=== PATIENT | female | born 1990 | race Caucasian/White ===

== ENCOUNTER → 2018-08-15 12:26 | Outpatient (CLI) | payer OTHER, SELFPAY ==
[2018-08-15 13:08] LABS: Basophils % 0.2 % (0.1-2.0); Eosinophils # 0.1 K/mm3 (0.0-0.4); Hematocrit 32.9 % (37.0-47.0); Hemoglobin 11.2 g/dL (12.2-16.2); Lymphocytes # 1.9 K/mm3 (0.7-4.5); Lymphocytes % 22.3 K/mm3 (10-50); Mean Corpuscular HGB Conc 34.1 g/dL (31.8-35.4); Mean Corpuscular Hemoglobin 27.9 pg (27.0-31.2); Mean Corpuscular Volume 81.9 fl (81-99); Mean Platelet Volume 6.9 fl (7.4-10.4); Monocytes # 0.5 K/mm3 (0.1-1.0); Monocytes % 5.6 % (1.7-9.3); Neutrophils # 5.9 K/mm3 (1.8-7.8); Platelet Count 236 K/mm3 (142-424); Red Blood Count 4.02 M/mm3 (4.20-5.40); White Blood Count 8.3 K/mm3 (4.8-10.8)
[2018-08-15 15:45] LABS: Alanine Aminotransferase 31 U/L (12-78); Albumin Level 3.4 gm/dL (3.4-5.0); Alkaline Phosphatase 69 U/L (46-116); Aspartate Amino Transferase 17 U/L (15-37); Bilirubin,Direct 0.1 mg/dL (0.0-0.2); Bilirubin,Indirect 0.2 mg/dL (0.0-0.9); Bilirubin,Total 0.3 mg/dL (0.2-1.0); Total Protein,Serum 6.6 gm/dL (6.4-8.2)
[2018-08-16 07:17] LABS: HIV Screen 4th Generation wRfx Non Reactive (Non Reactive)
[2018-08-16 14:15] LABS: Hepatitis B Surface Antigen Negative (Negative); Hepatitis C Antibody >11.0 s/co ratio (0.0-0.9)
[2018-08-16 14:16] LABS: Rapid Plasma Reagin Ab Titer Non Reactive (NonRea<1:1); Rubella Antibodies, IgG 2.17 index (Immune >0.99)
== END ==
PROVIDERS: Visit Provider Nurse Practitioner Obstetrics & Gynecology
DX: Z34.90 Encounter for supervision of normal pregnancy, unspecified, unspecified trimester (principal)
CPT/HCPCS: 36415; 80076; 85025; 86592; 86703; 86762; 86850; 87340; 87380; G0432

== ENCOUNTER → 2018-08-22 12:54 | Outpatient (CLI) | payer OTHER, SELFPAY ==
--- NOTE | 2018-08-22 12:57 | US_ITS ---
US OB transvaginal HISTORY: ITS.REASON: US OB Dates ORDERING PHYSICIAN: Jeffery Overton MD PATIENT AGE: 27 years COMPARISON: None FINDINGS: An intrauterine gestational sac is present with a pole with a crown-rump length of 3.42cm correlating to gestational age of 10w4d. heart tones are present with an FHR of 165 bpm's. Yolk sac is noted. The amnion and chorion have not yet fused. Adnexa: Unremarkable. 1 cm left ovarian cyst.. IMPRESSION: Live intrauterine gestation at 10 weeks 4 days days as described above. Estimated due date by Ultrasound is 03/17/2019
== END ==
PROVIDERS: Visit Provider Nurse Practitioner Obstetrics & Gynecology
DX: O26.841 Uterine size-date discrepancy, first trimester (principal)
CPT/HCPCS: 76817

== ENCOUNTER → 2018-09-12 12:21 | Outpatient (CLI) | payer OTHER, SELFPAY ==
[2018-09-15 22:06] LABS: Hepatitis C Genotype 3 (.)
== END ==
PROVIDERS: Visit Provider Nurse Practitioner Obstetrics & Gynecology
DX: B19.20 Unspecified viral hepatitis C without hepatic coma (principal)
CPT/HCPCS: 36415; 87522; 87902

== ENCOUNTER → 2018-11-19 12:32 | Outpatient (CLI) | payer OTHER, SELFPAY ==
[2018-11-21 06:14] LABS: Buprenorphine, Urine Negative ng/mL (Cutoff=10)
== END ==
PROVIDERS: Visit Provider Nurse Practitioner Obstetrics & Gynecology
DX: Z34.90 Encounter for supervision of normal pregnancy, unspecified, unspecified trimester (principal); Z3A.23 23 weeks gestation of pregnancy
CPT/HCPCS: 80307

== ENCOUNTER → 2018-12-10 08:08 | Outpatient (CLI) | payer OTHER, SELFPAY ==
[2018-12-10 09:28] LABS: Glucose,Fasting 79 mg/dL (60-105)
[2018-12-10 10:30] LABS: Glucose 1 Hour 127 mg/dL (74-106)
== END ==
PROVIDERS: Visit Provider Nurse Practitioner Obstetrics & Gynecology
DX: Z34.90 Encounter for supervision of normal pregnancy, unspecified, unspecified trimester (principal)
CPT/HCPCS: 36415; 82951

== ENCOUNTER 2018-12-17 09:01 | Outpatient (CLI) | payer OTHER, SELFPAY ==
[2018-12-17 09:16] VITALS: BP 126/77; PULSE 85; RESP 18; TEMP 36.6; O2SAT 98; BMI 34.3
== END 2018-12-17 09:45 | disposition home or self-care (01) ==
LOC: OBOUT 09:03 → OB 09:04
PROVIDERS: PCP Emergency Medicine; Visit Provider Nurse Practitioner Obstetrics & Gynecology
DX: O26.92 Pregnancy related conditions, unspecified, second trimester (principal); Z3A.27 27 weeks gestation of pregnancy; Z87.59 Personal history of other complications of pregnancy, childbirth and the puerperium
CPT/HCPCS: 96372

== ENCOUNTER 2018-12-18 09:32 | Outpatient (CLI) | payer OTHER, SELFPAY ==
[2018-12-18 09:39] VITALS: BP 113/66; PULSE 83; RESP 18; TEMP 36.6; O2SAT 97; BMI 34.3
--- NOTE | 2018-12-18 10:01 | PC.NURSE ---
Patient has follow up appointments with Dr. Overton at Sunday 12/24 and with [facility] on 01/08 with a high risk OBGYN.
== END 2018-12-18 10:00 | disposition home or self-care (01) ==
LOC: OBOUT 09:33 → OB 09:33
PROVIDERS: PCP Emergency Medicine; Visit Provider Nurse Practitioner Obstetrics & Gynecology
DX: O26.92 Pregnancy related conditions, unspecified, second trimester (principal); Z3A.27 27 weeks gestation of pregnancy; Z87.59 Personal history of other complications of pregnancy, childbirth and the puerperium
CPT/HCPCS: 96372

== ENCOUNTER → 2019-02-14 14:30 | Outpatient (CLI) | payer OTHER, SELFPAY | PROVIDERS: Visit Provider Nurse Practitioner Obstetrics & Gynecology | DX: Z34.90 Encounter for supervision of normal pregnancy, unspecified, unspecified trimester (principal) | CPT/HCPCS: 86403 ==

== ENCOUNTER 2019-03-07 05:14 | Inpatient (IN) | payer OTHER, SELFPAY ==
[2019-03-07] VITALS (10 sets, daily range): BP systolic 107–144; BP diastolic 56–95; PULSE 73–108; RESP 14–21; TEMP 37–37.3; O2SAT 96–99; BMI 31.4
[2019-03-07 04:16] LABS: Appearance,Urine CLEAR (Clear); Bilirubin,Urine Negative (Negative); Blood, Urine TRACE-I (Negative); Color,Urine YELLOW (Yellow); Glucose,Urine (UA) Negative (Negative); Ketones,Urine Negative (Negative); Leukocyte Esterase,Urine Negative (Negative); Microscopic, Urine URINE MICROSCOPIC (MICROSCOPIC); Nitrate,Urine Negative (Negative); Protein,Urine Negative (Negative); Specific Gravity, Urine 1.015 (1.005-1.030); Urobilinogen,Urine 0.2 EU/dl (0.2)
[2019-03-07 04:17] LABS: Fetal Membrane Rupture (Rapid) Positive (Negative)
[2019-03-07 04:25] LABS: Amphetamine/Metha Screen,Urine Negative ng/mL (<1000); Barbiturates Screen,Urine Negative ng/mL (<200); Benzodiazepines Screen,Urine Negative ng/mL (<200); Cannabinoid Screen,Urine Negative ng/mL (<50); Cocaine Screen,Urine Negative ng/mL (<300); Methadone Screen,Urine Positive ng/mL (<300); Opiate Screen,Urine Negative ng/mL (<300); Phencyclidine Screen,Urine Negative ng/mL (<25)
[2019-03-07 05:01] LABS: Basophils % 0.2 % (0.1-2.0); Eosinophils # 0.1 K/mm3 (0.0-0.4); Eosinophils % 1.1 % (0.1-12.0); Hemoglobin 13.2 g/dL (12.2-16.2); Lymphocytes # 1.9 K/mm3 (0.7-4.5); Lymphocytes % 20.7 % (10-50); Mean Corpuscular HGB Conc 35.6 g/dL (31.8-35.4); Mean Corpuscular Hemoglobin 30.6 pg (27.0-31.2); Mean Platelet Volume 7.2 fl (7.4-10.4); Monocytes # 0.5 K/mm3 (0.1-1.0); Monocytes % 5.1 % (1.7-9.3); Neutrophils # 6.8 K/mm3 (1.8-7.8); Platelet Count 275 K/mm3 (142-424); Red Cell Distribution Width 13.3 % (11.5-17.5); White Blood Count 9.4 K/mm3 (4.8-10.8)
[2019-03-07 05:12] LABS: Bacteria,Urine 1+ /lpf; Mucus,Urine 1+ /lpf
--- NOTE | 2019-03-07 06:37 | P.PN_ITS ---
[facility] Anesthesia Checklist - Patient Identification Patient Identification: Arm Band - Structural Data Admitted From: Inpatient Planned Operative Procedure/s: labor epidural Consent for Planned Operative Procedure(s) Verified: Yes Verified Documents: Surgical Consent, History and Physical - NPO Status Verified Time NPO: 00:00 - Additional verifications Anesthesia Reactions: No - Airway Assessment C-Spine Mobility Assessed: Yes TMJ Mobility Assessed: Yes Dentition: Good Dentition - Neurological Assessment Level of Consciousness: Awake, Alert - Anesthesia Plan Anesthesia Risk discussed: Yes Anesthesia Plan: Verified ASA Class: II Anesthesia Type: Epidural [facility] History I have reviewed the patient's past medical history: Yes Medical History: Reports:: Cardiomyopathy, Gastroesophageal Reflux Disease(GERD), Migraine *Have you ever received a pneumonia vaccine?: No *Have you received a flu vaccine this season?: No Other Medical History: Reports: Other Other Surgeries: Yes: No Previous Surgery. 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
--- NOTE | 2019-03-07 09:19 | HMH.PHAINT ---
MEDICATION RECONCILIATION COMPLETED ON PATIENT. CALLED [facility] TO VERIFY METHADONE DOSE WITH DOSING NURSE JANUARY. PATIENT TAKES 20MG OF METHADONE DAILY. -DEBBIE MOORED
--- NOTE | 2019-03-07 09:26 | HMH.LABNOT ---
Labor Note - Subjective: Date: 03/07/19 Time: 09:26 regular contraction - Objective: NST:: Reactive Contractions:: every 2-3 minutes Cervical Dilation:: 3 Effacement:: 75% Station: -3 Membranes: spontaneously ruptured - Fetus: Monitoring?: Yes monitoring type:: External - Assessment: Labor progressing?: Yes Cephalopelvic disproportion?: No Patient Problems: All Active Problems (Updated 03/04/19 @ 14:54 by Jeffery Overton MD) History of stillbirth in currently patient (Acute) (Acute) - Plan: Anesthesia for epidural?: Yes Continue to labor down?: Yes Plan for ?: No Continue to monitor?: Yes Start pushing?: No Comment:: She came in this morning with spontaneous rupture of membranes about 2:30 AM. There is some thin meconium. Nonstress test is reactive. Cervix is 3 cm 75% Station -3. She is receiving IV oxytocin. We are picking up the contractions well.
--- NOTE | 2019-03-07 10:54 | HMH.ACPN2 ---
Internal Medicine - PN: Subj *Date: 03/07/19 *Time: 10:54 Interval history: She continues to have early decelerations with an occasional late component. She is complaining of severe right arm pain from her elbow to her wrist. Is not clear why she has this pain and apparently they did blow an IV this morning. The pain has just gotten worse. She continues to have regular contractions but is really not changed her cervix. Her cervix is 3 to 4 cm 75% and station is quite high. We will go ahead with a primary lower segment section. We discussed the risks of surgery that includes bleeding, infection, injury to the bowel and bladder. We discussed the rare risk of DVT. All questions were answered and consents were signed. Exam Vital signs and Labs for Last 24 Hours: Temp Pulse Resp BP Pulse Ox 98.7 F 108 H 18 141/95 H 98 03/07/19 03:44 03/07/19 03:44 03/07/19 03:44 03/07/19 03:44 03/07/19 03:44 Laboratory Results - last 24 hr 03/07/19 03:20: Urine Color Yellow, Urine Appearance Clear, Urine pH 7.0, Ur Specific [place] 1.015, Urine Protein Negative, Urine Glucose (UA) Negative, Urine Ketones Negative, Urine Blood Trace-i, Urine Nitrate Negative, Urine Bilirubin Negative, Urine Urobilinogen 0.2, Ur Leukocyte Esterase Negative, Urine RBC 3-5, Urine WBC 3-5, Ur Squamous Epith Cells 3-5, Urine Bacteria 1+, Urine Mucus 1+ 03/07/19 03:20: Membrane Rupture Positive A 03/07/19 03:20: Urine Opiates Screen Negative, Urine Methadone Screen Positive H, Ur Barbituates Screen Negative, Ur Phencyclidine Scrn Negative, Ur Amphetamines Screen Negative, U Benzodiazepines Scrn Negative, Urine Cocaine Screen Negative, U Marijuana (THC) Screen Negative 03/07/19 04:20: WBC 9.4, RBC 4.30, Hgb 13.2, Hct 37.0, MCV 86.0, MCH 30.6, MCHC 35.6 H, RDW 13.3, Plt Count 275, MPV 7.2 L, Neut % (Auto) 73.0, Lymph % (Auto) 20.7, [place] % (Auto) 5.1, Eos % (Auto) 1.1, Baso % (Auto) 0.2, Neut # (Auto) 6.8, Lymph # (Auto) 1.9, [place] # (Auto) 0.5, Eos # (Auto) 0.1, Baso # (Auto) 0.0 03/07/19 04:20: Blood Type A Positive, Antibody Screen Negative I & O for Last 24 hours: Intake & Output 03/04/19 03/05/19 03/06/19 03/07/19 11:59 11:59 11:59 11:59 Weight 195 lb - Constitutional no acute distress Assessment and Plan (1) Abnormal heart rate or rhythm affecting management of mother Current visit: Yes Status: Acute Category: Medical Code(s): O36.8390 - Maternal care for abnormalities of the heart rate or rhythm, unspecified trimester, not applicable or unspecified (2) Hepatitis C antibody positive in blood Current visit: Yes Status: Acute Category: Medical Code(s): R76.8 - Other specified abnormal immunological findings in serum (3) History of stillbirth in currently patient Current visit: No Status: Acute Qualifiers: Category: Medical Code(s): O09.299 - Supervision of with other poor reproductive or obstetric history, unspecified trimester (4) Meconium in amniotic fluid affecting management of mother Current visit: Yes Status: Acute Category: Medical Code(s): O36.8990 - Maternal care for other specified problems, unspecified trimester, not applicable or unspecified - Assessment and plan all Dx Assessment and Plan for all problems:: We will go ahead with a primary lower segment transverse section. The cervix is really not changed and she is having an abnormal heart rate rhythm with early's and an occasional late component. I suspect she may have a nuchal cord. There is also meconium.
--- NOTE | 2019-03-07 10:57 | P.PN_ITS ---
Internal Medicine - PN: Subj *Date: 03/07/19 *Time: 10:54 Interval history: She continues to have early decelerations with an occasional late component. She is complaining of severe right arm pain from her elbow to her wrist. Is not clear why she has this pain and apparently they did blow an IV this morning. The pain has just gotten worse. She continues to have regular contractions but is really not changed her cervix. Her cervix is 3 to 4 cm 75% and station is quite high. We will go ahead with a primary lower segment section. We discussed the risks of surgery that includes bleeding, infection, injury to the bowel and bladder. We discussed the rare risk of DVT. All questions were answered and consents were signed. Exam Vital signs and Labs for Last 24 Hours: Temp Pulse Resp BP Pulse Ox 98.7 F 108 H 18 141/95 H 98 03/07/19 03:44 03/07/19 03:44 03/07/19 03:44 03/07/19 03:44 03/07/19 03:44 Laboratory Results - last 24 hr 03/07/19 03:20: Urine Color Yellow, Urine Appearance Clear, Urine pH 7.0, Ur Specific [place] 1.015, Urine Protein Negative, Urine Glucose (UA) Negative, Urine Ketones Negative, Urine Blood Trace-i, Urine Nitrate Negative, Urine Bilirubin Negative, Urine Urobilinogen 0.2, Ur Leukocyte Esterase Negative, Urine RBC 3-5, Urine WBC 3-5, Ur Squamous Epith Cells 3-5, Urine Bacteria 1+, Urine Mucus 1+ 03/07/19 03:20: Membrane Rupture Positive A 03/07/19 03:20: Urine Opiates Screen Negative, Urine Methadone Screen Positive H , Ur Barbituates Screen Negative, Ur Phencyclidine Scrn Negative, Ur Amphe tamines Screen Negative, U Benzodiazepines Scrn Negative, Urine Cocaine Screen Negative, U Marijuana (THC) Screen Negative 03/07/19 04:20: WBC 9.4, RBC 4.30, Hgb 13.2, Hct 37.0, MCV 86.0, MCH 30.6, MCHC 35.6 H, RDW 13.3, Plt Count 275, MPV 7.2 L, Neut % (Auto) 73.0, Lymph % (Auto) 20.7, [place] % (Auto) 5.1, Eos % (Auto) 1.1, Baso % (Auto) 0.2, Neut # (Auto) 6.8, Lymph # (Auto) 1.9, [place] # (Auto) 0.5, Eos # (Auto) 0.1, Baso # (Auto) 0.0 03/07/19 04:20: Blood Type A Positive, Antibody Screen Negative I & O for Last 24 hours: Intake & Output 03/04/19 03/05/19 03/06/19 03/07/19 11:59 11:59 11:59 11:59 Weight 195 lb - Constitutional no acute distress Assessment and Plan (1) Abnormal heart rate or rhythm affecting management of mother Current visit: Yes Status: Acute Category: Medical Code(s): O36.8390 - Maternal care for abnormalities of the heart rate or rhythm, unspecified trimester, not applicable or unspecified (2) Hepatitis C antibody positive in blood Current visit: Yes Status: Acute Category: Medical Code(s): R76.8 - Other specified abnormal immunological findings in serum (3) History of stillbirth in currently patient Current visit: No Status: Acute Qualifiers: Category: Medical Code(s): O09.299 - Supervision of with other poor reproductive or obstetric history, unspecified trimester (4) Meconium in amniotic fluid affecting management of mother Current visit: Yes Status: Acute Category: Medical Code(s): O36.8990 - Maternal care for other specified problems, unspecified trimester, not applicable or unspecified - Assessment and plan all Dx Assessment and Plan for all problems:: We will go ahead with a primary lower segment transverse section. The cervix is really not changed and she is having an abnormal heart rate rhythm
[2019-03-07 11:49] LABS: Cord Blood PH 7.36 (7.35-7.45)
--- NOTE | 2019-03-07 12:13 | HMH.OPNOTE ---
Date of procedure: 03/07/19 Pre-op Diagnosis:: Nonreassuring heart rate tracing, history of stillbirth, hepatitis C positive, methadone use, desire for sterilization Post-op Diagnosis:: Nonreassuring heart rate tracing, history of stillbirth, nuchal cord, otitis C+, methadone use, desire for sterilization Procedure performed:: Primary lower segment transverse section and bilateral salpingectomy Surgeon:: Jeffery Overton MD Hand Mica Plate Layer(s):: Anyi Rivera GLASS LAMINATING OPERATOR:: Mike Wilcox Anesthesia: epidural Estimated blood loss (mL): 600 Clinical Note:: She is a 1-year-old 5 para 3 aborta 1 who was 38 and 5 weeks gestational age. She came in in labor with ruptured membranes. She was found to be 3 cm dilated and the head was high 75% effaced. There was thick meconium noted. She was started on IV oxytocin and progressed from 3 to 4 cm. The presenting part was still very high. She was having variable decelerations and especially deep head compression decelerations. Since she has had 2 previous stillbirths and the nonstress test was nonreassuring. We elected to perform a primary lower segment transverse section. Operative findings:: She delivered a liveborn male child at 11:37 PM in the morning of March 07, 2019. Baby had Apgars of 9 at 1 minute and 10 at 5 minutes. pH was 7.36. Ovaries and tubes appeared normal. There was a nuchal cord. Operative note:: She was taken to the operating room where epidural anesthesia was found be adequate. She was prepped and draped in normal sterile fashion in the supine position with a leftward tilt. A No catheter was in the bladder. A Pfannenstiel skin incision was made with knife then carried through to the underlying layer of fascia with cautery. The fascia was opened in the midline with cautery and extended laterally using Hays scissors. [place] clamps were applied to the superior aspect of the fascial incision which was tented up and the underlying rectus muscles dissected off using cautery. The Daniel clamps were then applied to the inferior aspect of the fascial incision which in a similar fashion was tented up and the underlying rectus muscles dissected off using cautery. The rectus muscles were then in the midline, the peritoneum identified, and entered sharply with Metzenbaum scissors. This incision was then extended superiorly and inferiorly with cautery. We had good visualization of the bladder inferiorly. The Smith device was then placed within the abdominal cavity. The bladder peritoneum was then opened in the midline and extended laterally using Metzenbaum scissors. A bladder flap was created digitally. Transverse incision was made through the uterine muscle to the amnion. This incision was then extended laterally using fingers traction. The amnion was entered sharply with knife. There was meconium-stained amniotic fluid. The infant's head was then delivered atraumatically. A loose nuchal cord was then reduced. This was followed by the anterior shoulder and the rest of the infant's body atraumatically. The oropharynx and nasopharynx were DeLee suctioned. The was then handed off to Dr. Molina who assigned Apgars of 9 at 1 minute and 10 at 5 minutes. We then obtained cord blood as well as cord pH. The pH was 7.36. Using gentle traction on the cord and countertraction on the fundus I was able to easily deliver the placenta intact. It had a normal three-vessel cord. The uterus was then cleared of clots and debris . The uterine incision was then closed using running 0 Vicryl suture in a locked fashion. A second layer of the same suture was used to imbricate the first layer. There was a small amount of bleeding on the right side and I used [id number] sutures here to obtain excellent hemostasis. I had good visualization posteriorly. The bladder peritoneum was then closed using running 2-0 Vicryl suture in a locked fashion. The gutters and cul-de-sac
--- NOTE | 2019-03-07 12:16 | P.OP_ITS ---
Date of procedure: 03/07/19 Pre-op Diagnosis:: Nonreassuring heart rate tracing, history of stillbirth, hepatitis C positive, methadone use, desire for sterilization Post-op Diagnosis:: Nonreassuring heart rate tracing, history of stillbirth, nuchal cord, otitis C+, methadone use, desire for sterilization Procedure performed:: Primary lower segment transverse section and bilateral salpingectomy Surgeon:: Jeffery Overton MD Fulling Machine Operator(s):: Anyi Rivera DEPARTMENT OF SOCIOLOGY CHAIR:: Mike Wilcox Anesthesia: epidural Estimated blood loss (mL): 600 Clinical Note:: She is a 1-year-old 5 para 3 aborta 1 who was 38 and 5 weeks gestational age. She came in in labor with ruptured membranes. She was found to be 3 cm dilated and the head was high 75% effaced. There was thick meconium noted. She was started on IV oxytocin and progressed from 3 to 4 cm. The presenting part was still very high. She was having variable decelerations and especially deep head compression decelerations. Since she has had 2 previous stillbirths and the nonstress test was nonreassuring. We elected to perform a primary lower segment transverse section. Operative findings:: She delivered a liveborn male child at 11:37 PM in the morning of March 07, 2019. Baby had Apgars of 9 at 1 minute and 10 at 5 minutes. pH was 7.36. Ovaries and tubes appeared normal. There was a nuchal cord. Operative note:: She was taken to the operating room where epidural anesthesia was found be adequate. She was prepped and draped in normal sterile fashion in the supine position with a leftward tilt. A No catheter was in the bladder. A Pfannenstiel skin incision was made with knife then carried through to the underlying layer of fascia with cautery. The fascia was opened in the midline with cautery and extended laterally using Hays scissors. Allen clamps were applied to the superior aspect of the fascial incision which was tented up and the underlying rectus muscles dissected off using cautery. The Daniel clamps were then applied to the inferior aspect of the fascial incision which in a similar fashion was tented up and the underlying rectus muscles dissected off using cautery. The rectus muscles were then in the midline, the peritoneum identified, and entered sharply with Metzenbaum scissors. This incision was then extended superiorly and inferiorly with cautery. We had good visualization of the bladder inferiorly. The Smith device was then placed within the abdominal cavity. The bladder peritoneum was then opened in the midline and extended laterally using Metzenbaum scissors. A bladder flap was created digitally. Transverse incision was made through the uterine muscle to the amnion. This incision was then extended laterally using fingers traction. The amnion was entered sharply with knife. There was meconium-stained amniotic fluid. The infant's head was then delivered atraumatically. A loose nuchal cord was then reduced. This was followed by the anterior shoulder and the rest of the infant's body atraumatically. The oropharynx and nasopharynx were DeLee suctioned. The was then handed off to Dr. Molina who assigned Apgars of 9 at 1 minute and 10 at 5 minutes. We then obtained cord blood as well as cord pH. The pH was 7.36. Using gentle traction on the cord and countertraction on the fundus I was able to easily deliver the placenta intact. It had a normal three-vessel cord. The uterus was then cleared of clots and debris . The uterine incision was then closed using running 0 Vicryl suture in a locked fashion. A second layer of the same suture was used to imbricate the first layer. There was a small amount of
--- NOTE | 2019-03-07 12:22 | HMH.ANESI ---
[facility] Anesthesia Record Part I Intake, IV Amount: 700 Estimated blood loss (mL): 600 Urine output (mL): 0 (NM) Blood Pressure: 128/79 SaO2: 99 Pulse Rate: 78 Respiratory Rate: 16 Temperature: 98.6 F Patient is:: Awake, Stable Stable to PACU at:: 12:18
--- NOTE | 2019-03-07 12:23 | HMH.ANESII ---
[facility] Anesthesia Record Part II Discharge Time: 12:48 Destination: Obstetric PACU nurse assessment reviewed?: Yes Patient Condition:: Good Anesthesia Complications:: None Swallowing reflex intact?: Yes Cyanosis?: No
--- NOTE | 2019-03-07 13:01 | P.CONPHA_ITS ---
[facility] Pharmacy VTE Monitoring - Patient Demographics Admission date: 03/07/19 Report Date: 03/07/19 Time: 13:01 Allergies/Adverse Reactions: Patient Allergies latex Allergy (Intermediate, Verified 03/04/19 08:31) I-RASH Height: 1.68 m Weight: 88.451 kg Patient Problems: Current Active Problems (Updated 03/07/19 @ 10:57 by Jeffery Overton MD) Abnormal heart rate or rhythm affecting management of mother (Acute) Hepatitis C antibody positive in blood (Acute) Meconium in amniotic fluid affecting management of mother (Acute) - VTE Risk Labs: VTE Related Lab Results Hgb 13.2 g/dL (12.2-16.2) 03/07/19 04:20 Hct 37.0 % (37.0-47.0) 03/07/19 04:20 Plt Count 275 K/mm3 (142-424) 03/07/19 04:20 - Prophylaxis VTE Prophylaxis Ordered?: Yes Types of VTE Prophylaxis: IPCS Thigh High Location of Applied Device: Bilateral Lower Extremeties - VTE Diagnosis Confirmed Treatment or plan recommended: Continue Current Treatment
--- NOTE | 2019-03-07 15:54 | SUR.OPER ---
1137- live born male delivered. apgars 5 min-9 for color 10 min- 10
--- NOTE | 2019-03-07 17:38 | SUR.PHASEI ---
Discussed options for pain meds with [facility] r/t to pt's use of methadone 03/06/19, as stated by pt. No opioid options or narcotic options available per [facility], Toradol 30 mg given IM to right deltoid at 1220. Second massage of fundus at 1228, pt did not tolerate well. Called Dr Overton at 1229, receiving voicemail, left message to call back with suggestion. Missed return call r/t attending to this patient. Received order from [facility] to give ofirmev 1 gm IVPB one time only in PACU. Ofirmev 1 gm IVPB given at 1235. Returned call to Dr Overton, no orders given for pain meds. Dr Overton stated that pt's necessary meds would be ordered once pt comes to the floor. Informed pt that I had spoken to Dr Overton and he told me her meds would be ordered once she is on the OB floor.
[2019-03-08 06:31] LABS: Hematocrit 28.1 % (37.0-47.0); Hemoglobin 10.1 g/dL (12.2-16.2)
--- NOTE | 2019-03-08 07:39 | HMH.ACPN2 ---
Internal Medicine - PN: Subj *Date: 03/08/19 *Time: 07:39 Interval history: She continues to do well this morning. She is eating and drinking and ambulating. She is breast-feeding. Her lochia is normal. Her pain is well controlled. Exam Vital signs and Labs for Last 24 Hours: Temp Pulse Resp BP Pulse Ox 99.2 F 73 19 143/81 H 97 03/07/19 13:18 03/07/19 13:18 03/07/19 13:18 03/07/19 13:18 03/07/19 13:18 Laboratory Results - last 24 hr 03/07/19 11:35: Cord ABG pH 7.36 03/08/19 06:10: Hgb 10.1 L, Hct 28.1 L I & O for Last 24 hours: Intake & Output 03/05/19 03/06/19 03/07/19 03/08/19 11:59 11:59 11:59 11:59 Intake Total 700 / 700 Output Total 200 / 200 Balance 500 / 500 Weight 195 lb - Constitutional no acute distress Assessment and Plan (1) Abnormal heart rate or rhythm affecting management of mother Current visit: Yes Status: Acute Category: Medical Code(s): O36.8390 - Maternal care for abnormalities of the heart rate or rhythm, unspecified trimester, not applicable or unspecified (2) Hepatitis C antibody positive in blood Current visit: Yes Status: Acute Category: Medical Code(s): R76.8 - Other specified abnormal immunological findings in serum (3) History of stillbirth in currently patient Current visit: No Status: Acute Qualifiers: Category: Medical Code(s): O09.299 - Supervision of with other poor reproductive or obstetric history, unspecified trimester (4) Meconium in amniotic fluid affecting management of mother Current visit: Yes Status: Acute Category: Medical Code(s): O36.8990 - Maternal care for other specified problems, unspecified trimester, not applicable or unspecified - Assessment and plan all Dx Assessment and Plan for all problems:: She continues to do well. We will plan to send her home in 48 hours.
--- NOTE | 2019-03-08 10:05 | PC.NURSE ---
Report made with Central Int[facility] at this time. Reference ID #: [id number].
[2019-03-08 19:55] VITALS: BP 138/71; PULSE 84; RESP 18; TEMP 36.9; O2SAT 98
--- NOTE | 2019-03-09 11:24 | HMH.ACPN2 ---
Internal Medicine - PN: Subj *Date: 03/09/19 *Time: 11:24 Interval history: She continues to do well. She is eating and drinking and ambulate in. Her pain is well controlled. She is breast-feeding. Her lochia is normal. Exam Vital signs and Labs for Last 24 Hours: Temp Pulse Resp BP Pulse Ox 98.4 F 84 18 138/71 98 03/08/19 19:55 03/08/19 19:55 03/08/19 19:55 03/08/19 19:55 03/08/19 19:55 I & O for Last 24 hours: Intake & Output 03/06/19 03/07/19 03/08/19 03/09/19 11:59 11:59 11:59 11:59 Intake Total 700 / 700 Output Total 200 / 200 Balance 500 / 500 Weight 195 lb - Constitutional no acute distress Assessment and Plan (1) Abnormal heart rate or rhythm affecting management of mother Current visit: Yes Status: Acute Category: Medical Code(s): O36.8390 - Maternal care for abnormalities of the heart rate or rhythm, unspecified trimester, not applicable or unspecified (2) Hepatitis C antibody positive in blood Current visit: Yes Status: Acute Category: Medical Code(s): R76.8 - Other specified abnormal immunological findings in serum (3) History of stillbirth in currently patient Current visit: No Status: Acute Qualifiers: Category: Medical Code(s): O09.299 - Supervision of with other poor reproductive or obstetric history, unspecified trimester (4) Meconium in amniotic fluid affecting management of mother Current visit: Yes Status: Acute Category: Medical Code(s): O36.8990 - Maternal care for other specified problems, unspecified trimester, not applicable or unspecified - Assessment and plan all Dx Assessment and Plan for all problems:: She continues to do well. Will follow up with her tomorrow. We will plan to send her home tomorrow.
[2019-03-09 21:06] VITALS: BP 123/71; PULSE 81; RESP 18; TEMP 36.9; O2SAT 99
--- NOTE | 2019-03-10 13:17 | HMH.DCSUM ---
General - General Admission date:: 03/07/19 Discharge date: 03/10/19 HPI HPI: She is a 28-year-old 5 para 1 who has had 2 previous stillbirths. She came in in active labor with ruptured membranes. She subsequently started on IV oxytocin and there was thick meconium. She really failed to progress beyond 3 to 4 cm. There were deep decelerations with contractions. Presented part was still quite high. After having discussed the risks benefits we elected to perform a primary lower segment transverse section. Hospital Course Hospital Course: On March 07, 2019 she underwent a primary lower segment transverse section and bilateral tubal ligation. She has done well postoperatively and has remained afebrile with her hospitalization. She is eating and drinking and ambulating. She is breast-feeding. Her lochia is normal. Her pain is well controlled. She has a positive blood, she is rubella immune and was group B strep to coccus negative. She does take methadone on a daily basis. She delivered a liveborn male child at 11:37 AM on the morning of March 07, 2019. The baby weighed 5 pounds 15 ounces and was 18-1/2 inches long. He had Apgars of 9 at 1 minute and 10 at 5 minutes. pH was 7.36. She is discharged home to follow-up with me in approximately 2 weeks time. She will continue with her vitamins and iron. She was given the usual instructions with respect to limiting her activity, driving and sexual activity. She was given a prescription for Motrin 400 mg number 40 tablets as well as Percocet 10/325 number 20 tablets. Her condition on discharge is stable. Rhogam Administration: Not Indicated Objective Vital signs: Temp Pulse Resp BP Pulse Ox 98.4 F 81 18 123/71 99 03/09/19 21:06 03/09/19 21:06 03/09/19 21:06 03/09/19 21:06 03/09/19 21:06 no acute distress DS: Diagnosis - Discharge Diagnosis (1) Abnormal heart rate or rhythm affecting management of mother Status: Acute (2) Hepatitis C antibody positive in blood Status: Acute (3) History of stillbirth in currently patient Status: Acute (4) Meconium in amniotic fluid affecting management of mother Status: Acute (5) Methadone maintenance treatment affecting Status: Acute Discharge Plan - Patient Discharge Instructions ACTIVITY: No heavy lifting DIET: continue same diet - Follow up Plan Disposition: Home, Self-Custodial Medications: Home Medications Medication Instructions Recorded Confirmed Type 1 tab PO DAILY 09/12/18 03/07/19 History vitamin,calcium,ozbxeqfq-bbnk-fpczf acid tablet Ferrous Sulfate 325 mg PO DAILY 12/18/18 03/07/19 History aspirin 81 mg tablet,delayed 81 mg PO DAILY 01/31/19 03/07/19 History release Methadone HCl [Methadone 10mg 20 mg PO DAILY 03/07/19 03/07/19 History Tablet] Ibuprofen [Motrin 400mg 400 mg PO Q4HP PRN #40 tab 03/10/19 Rx tablet] Oxycodone HCl/Acetaminophen 1 tab PO Q6H PRN #20 tab 03/10/19 Rx [Percocet 10-325 mg Tablet] Prescriptions/Medication Reconciliation: New Oxycodone HCl/Acetaminophen [Percocet 10-325 mg Tablet] 1 tab PO Q6H PRN #20 tab PRN Reason: Moderate Pain Ibuprofen [Motrin 400mg tablet] 400 mg PO Q4HP PRN #40 tab PRN Reason: Moderate Pain Continued aspirin 81 mg tablet,delayed release 81 mg PO DAILY vitamin,calcium,gnpbxkaa-kzjq-dfzpj acid tablet 1 tab PO DAILY Ferrous Sulfate 325 mg PO DAILY Methadone HCl [Methadone 10mg Tablet] 20 mg PO DAILY
--- NOTE | 2019-03-10 13:20 | P.DS_ITS ---
General - General Admission date:: 03/07/19 Discharge date: 03/10/19 HPI HPI: She is a 28-year-old 5 para 1 who has had 2 previous stillbirths. She came in in active labor with ruptured membranes. She subsequently started on IV oxytocin and there was thick meconium. She really failed to progress beyond 3 to 4 cm. There were deep decelerations with contractions. Presented part was still quite high. After having discussed the risks benefits we elected to perform a primary lower segment transverse section. Hospital Course Hospital Course: On March 07, 2019 she underwent a primary lower segment transverse section and bilateral tubal ligation. She has done well postoperatively and has remained afebrile with her hospitalization. She is eating and drinking and ambulating. She is breast-feeding. Her lochia is normal. Her pain is well controlled. She has a positive blood, she is rubella immune and was group B strep to coccus negative. She does take methadone on a daily basis. She delivered a liveborn male child at 11:37 AM on the morning of March 07, 2019. The baby weighed 5 pounds 15 ounces and was 18-1/2 inches long. He had Apgars of 9 at 1 minute and 10 at 5 minutes. pH was 7.36. She is discharged home to follow-up with me in approximately 2 weeks time. She will continue with her vitamins and iron. She was given the usual instructions with respect to limiting her activity, driving and sexual activity. She was given a prescription for Motrin 400 mg number 40 tablets as well as Percocet 10/325 number 20 tablets. Her condition on discharge is stable. Rhogam Administration: Not Indicated Objective Vital signs: Temp Pulse Resp BP Pulse Ox 98.4 F 81 18 123/71 99 03/09/19 21:06 03/09/19 21:06 03/09/19 21:06 03/09/19 21:06 03/09/19 21:06 no acute distress DS: Diagnosis - Discharge Diagnosis (1) Abnormal heart rate or rhythm affecting management of mother Status: Acute (2) Hepatitis C antibody positive in blood Status: Acute (3) History of stillbirth in currently patient Status: Acute (4) Meconium in amniotic fluid affecting management of mother Status: Acute (5) Methadone maintenance treatment affecting Status: Acute Discharge Plan - Patient Discharge Instructions ACTIVITY: No heavy lifting DIET: continue same diet - Follow up Plan Disposition: Home, Self-[facility] Medications: Home Medications Medication Instructions Recorded Confirmed Type 1 tab PO DAILY 09/12/18 03/07/19 History vitamin,calcium,lkkdqmog-dcll-vzgng acid tablet Ferrous Sulfate 325 mg PO DAILY 12/18/18 03/07/19 History aspirin 81 mg tablet,delayed 81 mg PO DAILY 01/31/19 03/07/19 History release Methadone HCl [Methadone 10mg 20 mg PO DAILY 03/07/19 03/07/19 History Tablet] Ibuprofen [Motrin 400mg 400 mg PO Q4HP PRN #40 tab 03/10/19 Rx tablet] Oxycodone HCl/Acetaminophen 1 tab PO Q6H PRN #20 tab 03/10/19 Rx [Percocet 10-325 mg Tablet] Prescriptions/Medication Reconciliation: New Oxycodone HCl/Acetaminophen [Percocet 10-325 mg Tablet] 1 tab PO Q6H PRN #20 tab PRN Reason: Moderate Pain Ibuprofen [Motrin 400mg tablet] 400 mg PO Q4HP PRN #40 tab PRN Reason: Moderate Pain
--- NOTE | 2019-03-12 10:02 | SW/DCPLANNER ---
Addendum entered by Jackie Russo 03/21/19 13:39: Infant cord screen is POSITIVE for Methadone. Original Note: Called [facility] this morning to follow up on a weekend discharge that was called in by nurse Kiara Escobedo with an ID# [id number] and this was accepted by the [facility] team....
== END 2019-03-10 14:00 | disposition home or self-care (01) | DRG 785 ==
LOC: OBOUT 05:16 → OB 05:16
PROVIDERS: Admitting Provider Obstetrics & Gynecology; PCP Emergency Medicine; Visit Provider Nurse Practitioner Obstetrics & Gynecology
PROC: 0UT70ZZ Resection of Bilateral Fallopian Tubes, Open Approach (ICD-10-PCS; CPT 59514; principal; 2019-03-07 11:30)
DX: O76 Abnormality in fetal heart rate and rhythm complicating labor and delivery (principal); O69.81X0 Labor and delivery complicated by cord around neck, without compression, not applicable or unspecified; O32.4XX0 Maternal care for high head at term, not applicable or unspecified; Z3A.38 38 weeks gestation of pregnancy; Z37.0 Single live birth; Z30.2 Encounter for sterilization; B19.20 Unspecified viral hepatitis C without hepatic coma
CPT/HCPCS: 59514; 58700; 36415; 59025; 80305; 81001; 82800; 84112; 85014; 85018; 85025; 86850; 88302; 94761; C1758; J0131; J2405

== ENCOUNTER → 2023-08-21 09:48 | Outpatient (CLI) | payer MEDICAID, SELFPAY ==
[2023-08-21 10:26] LABS: Basophils % 0.4 % (0.1-2.0); Eosinophils # 0.1 K/mm3 (0.0-0.4); Eosinophils % 1.7 % (0.1-12.0); Hematocrit 41.9 % (37.0-47.0); Hemoglobin 15.1 g/dL (12.2-16.2); Lymphocytes # 2.1 K/mm3 (0.7-4.5); Lymphocytes % 34.1 % (10-50); Mean Corpuscular Hemoglobin 30.8 pg (27.0-31.2); Mean Corpuscular Volume 85.6 fl (81-99); Mean Platelet Volume 7.5 fl (7.4-10.4); Monocytes # 0.5 K/mm3 (0.1-1.0); Monocytes % 7.3 % (1.7-9.3); Neutrophils # 3.5 K/mm3 (1.8-7.8); Neutrophils % 56.4 % (37.0-80.0); Platelet Count 212 K/mm3 (142-424); Red Blood Count 4.89 M/mm3 (4.20-5.40); Red Cell Distribution Width 13.1 % (11.5-17.5); White Blood Count 6.2 K/mm3 (4.8-10.8)
[2023-08-21 11:09] LABS: Alanine Aminotransferase 38 U/L (12-78); Albumin Level 4.1 g/dl (3.5-5.0); Albumin/Globulin Ratio 1.5 (1.1-1.8); Alkaline Phosphatase 62 U/L (38-126); Anion Gap 13.2 mEq/L (5-15); Aspartate Amino Transferase 39 U/L (14-36); Bilirubin,Total 0.6 mg/dl (0.2-1.3); Blood Urea Nitrogen 11 mg/dl (7-17); Carbon Dioxide 24 mmol/L (22.0-30.0); Chloride 106 mmol/L (98-107); Cholesterol 161 mg/dl (140-200); Estimated Glomerular Filt Rate 114 ml/min (>60); GFR (African American) 138 ML/MIN (>60); Globulin 2.8 g/dL (1.3-3.2); Glucose 94 mg/dl (74-100); HDL Cholesterol 32 mg/dl (40-60); Potassium 4.2 mmoL/L (3.5-5.1); Sodium 139 mmol/L (136-145); Total Protein,Serum 6.9 g/dl (6.3-8.2); Triglycerides 169 mg/dl (30-150); VLDL Cholesterol 34 mg/dL (0-40)
[2023-08-21 11:20] LABS: Direct LDL Cholesterol 91.45 mg/dL (100-129)
[2023-08-21 11:39] LABS: Thyroid Stimulating Hormone 0.77 uIU/mL (0.465-4.68)
[2023-08-22 14:19] LABS: FSH 6.3 mIU/mL (.); LH 5.7 mIU/mL (.); Progesterone 0.4 ng/mL (.)
[2023-08-23 17:29] LABS: Estrogen 90 pg/mL (.)
== END ==
PROVIDERS: PCP Physician Assistant; Visit Provider Physician Assistant
DX: R76.8 Other specified abnormal immunological findings in serum (principal); Z90.710 Acquired absence of both cervix and uterus; Z79.899 Other long term (current) drug therapy
CPT/HCPCS: 36415; 80053; 80061; 82306; 82672; 83001; 83002; 84144; 84443; 85025; 87522

== ENCOUNTER → 2023-08-24 08:20 | Outpatient (CLI) | payer MEDICAID, SELFPAY ==
[2023-08-24 09:04] LABS: Basophils % 0.7 % (0.1-2.0); Eosinophils # 0.1 K/mm3 (0.0-0.4); Eosinophils % 2.5 % (0.1-12.0); Hematocrit 42.1 % (37.0-47.0); Hemoglobin 15.1 g/dL (12.2-16.2); Lymphocytes # 1.9 K/mm3 (0.7-4.5); Lymphocytes % 33.7 % (10-50); Mean Corpuscular Hemoglobin 30.8 pg (27.0-31.2); Mean Corpuscular Volume 85.7 fl (81-99); Mean Platelet Volume 7.8 fl (7.4-10.4); Monocytes # 0.3 K/mm3 (0.1-1.0); Monocytes % 6.2 % (1.7-9.3); Neutrophils # 3.1 K/mm3 (1.8-7.8); Neutrophils % 56.9 % (37.0-80.0); Platelet Count 192 K/mm3 (142-424); Red Blood Count 4.91 M/mm3 (4.20-5.40); Red Cell Distribution Width 13.1 % (11.5-17.5); White Blood Count 5.5 K/mm3 (4.8-10.8)
[2023-08-24 09:18] LABS: INR 0.95 (0.9-1.1); Prothrombin Time 10.3 seconds (10.1-12.5)
[2023-08-24 10:41] LABS: Alanine Aminotransferase 48 U/L (12-78); Albumin Level 3.9 g/dl (3.5-5.0); Albumin/Globulin Ratio 1.4 (1.1-1.8); Alkaline Phosphatase 70 U/L (38-126); Anion Gap 12.2 mEq/L (5-15); Aspartate Amino Transferase 42 U/L (14-36); Bilirubin,Total 0.4 mg/dl (0.2-1.3); Blood Urea Nitrogen 10 mg/dl (7-17); Calcium 8.8 mg/dl (8.4-10.2); Carbon Dioxide 24 mmol/L (22.0-30.0); Chloride 107 mmol/L (98-107); Estimated Glomerular Filt Rate 114 ml/min (>60); GFR (African American) 138 ML/MIN (>60); Globulin 2.7 g/dL (1.3-3.2); Glucose 110 mg/dl (74-100); Potassium 4.2 mmoL/L (3.5-5.1); Sodium 139 mmol/L (136-145); Total Protein,Serum 6.6 g/dl (6.3-8.2)
[2023-08-27 22:16] LABS: HCV Genotype Charge YES; Hepatitis C Genotype 3 (.)
[2023-08-31 20:49] LABS: HIV Screen 4th Generation wRfx Non Reactive; Hep A Ab, Total Negative; Hepatitis B Surface Antigen Negative
[2023-08-31 20:50] LABS: Hep B Core Ab, Total Negative; Hep B Surface Ab, Qual Reactive; Hepatitis C Antibody Reactive
== END ==
PROVIDERS: PCP Physician Assistant; Visit Provider Physician Assistant
DX: R76.8 Other specified abnormal immunological findings in serum (principal); Z11.4 Encounter for screening for human immunodeficiency virus [HIV]
CPT/HCPCS: 36415; 80053; 85025; 85610; 86703; 86704; 86706; 86708; 87340; 87380; 87522; 87902; G0432

== ENCOUNTER 2024-01-21 08:25 | Outpatient (CLI) | payer MEDICAID, SELFPAY ==
[2024-01-21 08:48] LABS: Basophils # 0.1 K/mm3 (0-0.2); Basophils % 1.5 % (0.1-2.0); Eosinophils # 0.1 K/mm3 (0.0-0.4); Eosinophils % 1.5 % (0.1-12.0); Hematocrit 42.7 % (37.0-47.0); Hemoglobin 14.4 g/dL (12.2-16.2); Lymphocytes % 39.1 % (10-50); Mean Corpuscular HGB Conc 33.8 g/dL (31.8-35.4); Mean Corpuscular Hemoglobin 29.3 pg (27.0-31.2); Mean Corpuscular Volume 86.9 fl (81-99); Mean Platelet Volume 7.9 fl (7.4-10.4); Monocytes # 0.4 K/mm3 (0.1-1.0); Neutrophils # 2.6 K/mm3 (1.8-7.8); Neutrophils % 50.9 % (37.0-80.0); Platelet Count 227 K/mm3 (142-424); Red Blood Count 4.92 M/mm3 (4.20-5.40); Red Cell Distribution Width 13.1 % (11.5-17.5); White Blood Count 5.2 K/mm3 (4.8-10.8)
[2024-01-21 09:22] LABS: Alanine Aminotransferase 26 U/L (12-78); Albumin/Globulin Ratio 1.5 (1.1-1.8); Alkaline Phosphatase 86 U/L (38-126); Aspartate Amino Transferase 26 U/L (14-36); Bilirubin,Total 0.5 mg/dl (0.2-1.3); Blood Urea Nitrogen 12 mg/dl (7-17); Carbon Dioxide 28 mmol/L (22.0-30.0); Chloride 105 mmol/L (98-107); Estimated Glomerular Filt Rate 114 ml/min (>60); GFR (African American) 138 ML/MIN (>60); Globulin 2.7 g/dL (1.3-3.2); Glucose 71 mg/dl (74-100); Sodium 137 mmol/L (136-145); Total Protein,Serum 6.7 g/dl (6.3-8.2)
[2024-01-24 08:37] LABS: Hepatitis C Antibody Reactive
== END 2024-01-21 23:59 | disposition home or self-care (01) ==
LOC: LAB 08:25
PROVIDERS: PCP Nurse Practitioner Family; Visit Provider Nurse Practitioner Family
DX: R76.8 Other specified abnormal immunological findings in serum (principal); F41.9 Anxiety disorder, unspecified; L73.2 Hidradenitis suppurativa; L02.32 Furuncle of buttock; Z79.899 Other long term (current) drug therapy
CPT/HCPCS: 36415; 80053; 85025; 87380; 87522

== ENCOUNTER 2025-07-29 14:15 | Outpatient (CLI) | payer MEDICAID, SELFPAY ==
--- OUTSIDE RECORDS SUMMARY | 2025-07-30 11:16 | XMS_ITS | Continuity of Care Document ---
Author Organization [place] - [employer], [facility] Address [address] [place] [address] Assessment No assessment recorded. Plan of Treatment Reminders Order Date Submit Date Provider Last Modified By Organization Details Last Modified Time Details Appointments None recorded. Lab None recorded. Referral None recorded. Procedures None recorded. Surgeries None recorded. Imaging None recorded. Medication Orders Bactrim DS 800 mg-160 mg tablet 2024 025 [facility], [address] [place] [address], [address], 5 05:01:18 Valtrex 1 gram tablet 2024 025 [facility], [address] [place] [address], [address], 5 09:30:53 ceftriaxone 1 gram solution for injection [address], [address], 5 10:07:40 Depo-Medrol 80 mg/mL suspension for injection [address], [address], 5 10:07:40 neomycin-po lymyxin-hyd rocort 3.5 mg-10,000 unit/mL-1 % ear drops,susp 2024 025 [facility], [address], [address], [place], [address], 5 10:11:16 Patient TargetsNo targets recorded. Patient InstructionsNo instructions recorded. Reason for Referral None Reported. Problems Name Problem SNOMED Code Status Onset Date Resolution Date Notes Provider Name and Address Organization Details Recorded Time Migraine 83322298 Active 2023 JUDITH Almanza [address] [place] [address], [phone], [employer] 14:58:30 Viral hepatitis C 02020756 Active 2023 completed treatment 02/2024 (HCV PCR negative 09/07) JUDITH Almanza [address] [place] [address], [phone], [employer] 4 08:13:03 Tremor 84769421 Active 2023 JUDITH Almanza [address] [place] [address], [phone], [employer] 4 09:25:21 Depressive disorder 49552192 Active 2023 JUDITH Almanza [address] [place] [address], [address] 8, [employer] 4 14:58:15 Vitamin D deficiency 24619086 Active 2023 JUDITH Almanza [address] [place] [address], [address] 8, [employer] 4 08:13:09 Hyperlipid emia 73015007 Active 2023 JUDITH Almanza [address] [place] [address], [address] 8, [employer] 4 08:13:07 Generalize d anxiety disorder 31651290 Active 2023 JUDITH Almanza [address] [place] [address], [address], [employer] 4 12:05:58 Acute upper respirator y infection 81459320 Active 2023 JUDITH Almanza [address] [place], [address], [employer] 4 13:52:51 Cellulitis of head 897884273 Active 2024 JUDITH Almanza [address] [place], [address], [employer] 5 09:20:01 Problem Notes None recorded. Procedures Surgical History Date Name Laterality Status Provider Name and Address Organization Details Recorded Time Caesarean Section completed Clementine Vice [facility] [employer] 08/18/2024 09:06:05 Hysterectomy completed Agiliance Vice [place] - [address] 08/18/2024 09:06:05 Imaging Results None recorded. Procedure Notes None recorded. Medical Equipment None Reported. Allergies Allergen ID Allergen Name Allergen Category Reaction Reaction Severity Criticality Documentation Date Start Date Code Code System Note Provider Name and Address Organization Details Recorded Time 42977 latex environme nt,medica tion itching rash Not available Not available Not available 08/18/2024 80119 91 [facility]Norm Clementine Vice null, [employer] 4 09:06:03 Medications Name Sig Start Date Stop Date Status Note LastModified by Organization Details LastModified Time buspirone 5 mg tablet TAKE 1 TABLET BY MOUTH TWICE A DAY DIRECTED FOR ANXIETY MAY CAUSE DROWSINES S 2024 active Not Available Not Available Not Avai lable venlafaxine ER 37.5 mg capsule,ext ended release 24 hr 08/18 completed Not Available Not Available Not Available venlafaxine ER 75 mg capsule,ext ended release 24 hr TAKE 1 CAPSULE BY MOUTH ONCE DAILY WITH 150MG FOR A TOTAL OF 225 2024 active Not Available Not Available Not Avai lable atorvastati n 10 mg tablet Take 1 tablet every day by oral route at bedtime for 90 days, for high cholester ol. active Not Available Not Available No t Available sumatriptan 100 mg tablet Take 1 tablet as needed by oral route as needed for 30 days, for migraine headache. 06/19 completed Not Available Not Available Not Available prednisone 20 mg tablet Take 1 tablet twice a day by oral route as directed for 5 days, for infection . 06/19 completed Not Available Not Available Not Available venlafaxine ER 150 mg capsule,ext ended release 24 hr TAKE 1 CAPSULE BY MOUTH ONCE DAILY 2024 active Not Available Not Available Not Avai lable spironolact one 25 mg tablet 08/18 completed Not Available Not Available Not Available Depo-Medrol 80 mg/mL suspension for injection Take 1 mL by injection route. 2024 active Not Available Not Available Not Avai lable ceftriaxone 1 gram solution for injection Take 1 g by injection route. 2024 active Not Available Not Available Not Avai lable Valtrex 1 gram tablet Take 1 tablet every 12 hours by oral route for 10 days. 2024 active Not Available Not Available Not Avai lable Vitamin D2 1,250 mcg (50,000 unit) capsule Take 1 capsule every week by oral route as directed for 90 days, for Vitamin D deficienc y. active Not Available Not Available No t Available bromphenira mine-pseudo ephedrine-D M 2 mg-30 mg-10 mg/5 mL oral syrup Take 10 mL every 4 hours by oral route as needed for 10 days, for cough/con gestion. 06/19 completed Not Available Not Available Not Available neomycin-po lymyxin-hyd rocort 3.5 mg-10,000 unit/mL-1 % ear drops,susp INSTILL 4 DROPS INTO AFFECTED EAR(S) 3 TIMES PER DAY 2024 active Not Available Not Available Not Avai lable Bactrim DS 800 mg-160 mg tablet Take 1 tablet every 12 hours by oral route for 10 days. 07/06 completed Not Available Not Available Not Available bupropion HCl XL 300 mg 24 hr tablet, extended release 09/18 completed Not Available Not Available Not Available bupropion HCl XL 150 mg 24 hr tablet, extended release Take 1 tablet every day by oral route as directed for 30 days, for weaning off Wellbutri n. 09/18 completed Not Available Not Available Not Available cholecalcif kelley (vitamin D3) 50 mcg (2,000 unit) capsule 06/19 completed Not Available Not Available Not Available cholecalcif kelley (vitamin D3) 50 mcg (2,000 unit) tablet Take 1 tablet every day by oral route as directed for 90 days, for Vitamin D deficienc y. 2023 active Not Available Not Available Not Avai lable Vraylar 1.5 mg capsule 08/18 completed Not Available Not Available Not Available Vraylar 3 mg capsule 08/18 completed Not Available Not Available Not Available sofosbuvir 400 mg-velpatas vir 100 mg tablet TAKE 1 TABLET BY MOUTH EVERY DAY FOR 12 WEEKS 08/18 completed Not Available Not Available Not Available Vitals Date Recorded Body height Body mass index (BMI) Body weight Oxygen saturation Oxygen saturation in Arterial blood by Pulse oximetry Heart rate Body temperature Systolic And Diastolic Provider Name and Address Organization Details Last Updated DateTime 5 160.02 cm 35.6 kg/m2 54848.0 7 g 97 % 97 % 88 /min 98.4 [degF] 124/84 mm[Hg] Clementine [employer] 08:59:11 Social History Question Answer Notes LastModified by [employer] ion Details LastModified Time Tobacco Smoking Status Current Every Day Smoker Clementine [employer]. 08/18/2024 09:06:04 Do You Have An Advance Directive? No Information not available 08/18/2024 Is Your Home Air Conditioned? Yes Information not available 08/18/2024 If You Are , What Was Your Level Of Alcohol Consumption Prior To ? None Information not available 08/18/2024 Do You Wear A Helmet When Biking? No Information not available 08/18/2024 Are You Blind Or Do You Have Difficulty Seeing? No Information not available 08/18/2024 What Is Your Level Of Caffeine Consumption? Heavy Information not available 08/18/2024 What Type Of Traffic Signal Supervisor Maintenance Do You Use? None Information not available 08/18/2024 Have You Been To An Area Known To Be High Risk For COVID-19? No Information not available 08/18/2024 Are You Deaf Or Do You Have Serious Difficulty Hearing? No Information not available 08/18/2024 What Type Of Diet Are You Following? REGULAR Information not available 08/18/2024 What Is The Highest Grade Or Level Of School You Have Completed Or The Highest Degree You Have Received? AO16536-3 Information not available 08/18/2024 Who Is Your Employer? [employer] Information not available 08/18/2024 How Many Days Of Moderate To Strenuous Exercise, Like A Brisk Walk, Did You Do In The Last 7 Days? 5 Information not available 08/18/2024 Have There Been Any Changes To Your Family Or Social Situation? No Information no t available 08/18/2024 Are There Any Guns Present In Your Home? Yes Information not available 08/18/2024 Which Of Your Hands Is Dominant? Right Information not available 08/18/2024 What Is Your Home Situation? Other Information not available 08/18/2024 Do You Have A Medical Power Of Data Sme? No Information not available 08/18/2024 What Was The Date Of Your Most Recent Tobacco Screening? 06/19/2025 Information not available 06/19/2025 Are There Any Occupational Health Risks Where You Work? No Information not available 08/18/2024 Do You Have Any Pets? Yes Information not available 08/18/2024 What Is Your Relationship Status? Information not available 08/18/2024 Have You Repeated Any Grades? No Information not available 08/18/2024 Do You Use Your Seat Belt Or Car Seat Routinely? Yes Information not available 08/18/2024 Are You Sexually Active? No Information not available 08/18/2024 Do You Have Any Siblings? 3 Information not available 08/18/2024 Do You Have Smoke And Carbon Monoxide Detectors In Your Home? Yes Information not available 08/18/2024 At What Age Did You Start Smoking Tobacco? 14 Information not available 08/18/2024 Are You Passively Exposed To Smoke? Yes Information no t available 08/18/2024 Are There Any Smokers In Your House? Yes Information not available 08/18/2024 How Much Tobacco Do You Smoke? 1 PPD Information not available 08/18/2024 Do You Participate In Social Media? Yes Information not available 08/18/2024 Do You Use Sunscreen Routinely? No Information not available 08/18/2024 Has Tobacco Cessation Counseling Been Provided? Yes Information not available 08/18/2024 On What Date Was Tobacco Cessation Counseling Provided? 06/19/2025 Information not available 06/19/2025 How Many Years Have You Smoked Tobacco? 20 Information not available 08/18/2024 Have You Recently Traveled Abroad? No Information not available 08/18/2024 Do You Have Difficulty Walking Or Climbing Stairs? No Information not available 08/18/2024 Are You Currently In School? No Information not available 08/18/2024 Do You Have Any Dietary Restrictions? No Information not available 08/18/2024 Sex: Female Functional Status Question Answer Note LastModified by [employer] ion Details LastModified Time Do you use any illicit or recreational drugs? No Information not available 08/18/2024 Do you or have you ever used any other forms of tobacco or nicotine? No Information not available 08/18/2024 What is your level of alcohol consumption? None Information not available 08/18/2024 Are you currently employed? Yes Information not available 08/18/2024 Do you have transportation difficulties? No Information not available 08/18/2024 Are you able to walk independently without assistance or assistive devices? [employer]ST Information not available 08/18/2024 Do you have difficulty doing errands alone? No Information not available 08/18/2024 Are you able to care for yourself independently? Yes Information not available 08/18/2024 Do you have difficulty dressing, bathing, grooming, or toileting? No Information not available 08/18/2024 What is your exercise level? Moderate Information not available 08/18/2024 Mental Status Question Answer Note LastModified by [employer] ion Details LastModified Time Do you feel stressed (tense, restless, nervous, or anxious, or unable to sleep at night)? [id number] Information not available 08/18/2024 Do you have difficulty concentrating, remembering or making decisions? No Information no t available 08/18/2024 Are you or have you been involved with bullying? No Information not available 08/18/2024 Family History Relationship Description Onset Age of this Age Resolved Age Notes LastModified by Organization Details LastModified Time Mother Hypercholest erolemia Not available 2023 09:06:03 Mother Liver problem Not available 2023 09:06:03 Mother Hypertensive disorder Not available 2023 09:06:03 Maternal Grandmother Malignant neoplasm of breast Not available 2023 09:06:03 Maternal Grandmother Hypertensive disorder Not available 2023 09:06:03 Maternal Grandmother Heart disease Not available 2023 09:06:03 Maternal Grandfather Hypertensive disorder Not available 2023 09:06:03 Paternal Grandfather Hypertensive disorder Not available 2023 09:06:03 Paternal Grandfather Heart disease Not available 2023 09:06:03 Father Anxiety disorder Not available 2023 09:06:03 Father Depressive disorder Not available 2023 09:06:03 Father Hypertensive disorder Not available 2023 09:06:03 Medical History Condition Response Coronary Artery Disease N Other N Gout N Kidney Stones N Blood Diseases N Hyperthyroidism N Breast Cancer N Blood Transfusion N Emergency room visit since last appointm ent. N Hypothyroidism N Lung Disease N COPD N Dermatologic Disorders N Depression Y Defects or Inherited Disease N Developmental or Behavioral Disorders N Breast Problem N Difficulty Swallowing N Anesthesia Complications N History of STI N Meniere's disease N Anxiety Disorder Y Muscle, Joint, or Bone Problems N Autoimmune disease N Vision or Eye Problems N Arthritis N Polyps N Infertility N Mental Disorder N Congenital Anomalies N Acid Reflux (GERD) N Cancer N Stroke N Neurologic/Epilepsy N Endometriosis N Bladder or Kidney Problems N High Cholesterol N Liver Disease N Psychiatric/Mental Health Condition N Organ Transplant N Dialysis N Fibromyalgia N Schizophrenia N Headaches Y Kidney Disease N Allergies/Hayfever N Heart Problems N Ear or Hearing Problems N Hospitalizations N Learning Disorder N Artificial Joints N Thyroid Problems N GI Problems N Acne N ADD/ADHD N Eating Disorder N Anemia N Constipation N Mental Illness N Ovarian Cancer N Diabetes N Bedwetting N Hepatitis/Liver Disease N Tuberculosis N Eczema N Diverticulitis N Abuse/Domestic Violence N Asthma N Trauma/Violence N Substance Abuse N Reflux/GERD N Depression/ depression N Hepatitis N Heart Disease N Pulmonary Embolism N Tourette Syndrome N Pre-Eclampsia N Hypertension N Chronic Ear Infections N Osteoporosis N Chicken Pox N Autism Spectrum Disorder (ASD) N Thrombophilias N Gynecological History Statement/Question Response Menses Monthly N HPV Vaccine N Date of Last Pap Smear Most Recent Mammogram Age at First Child 20 Obstetrics History GPAL:G 5 P 2 0 3 0 Type Value Multiple Births 0 Full Term 2 Induced 0 Spontaneous 3 Premature 0 Living 0 Ectopics 0 Total 5 Past Encounters Encounter ID Performer Location Encounter Start Date Encounter Closed Date Diagnosis/Indication Diagnosis SNOMED-CT Code Diagnosis ICD10 Code Diagnosis IMO Codes Diagnosis Note [id number] JUDITH Almanza [facility] [address] [place] [phone] 06/19/2025 08:51:50 06/19/2025 09:35:33 Cellulitis of head 999390557 H60.12 [id number] RTC if not improving Health Concerns Section Related Observation LastModified by Organization Detai ls LastModified Time None Recorded Concern Status LastModified by Organization Details LastModified Time None Recorded Payers Encounter Date Sequence Insurance Name Policy Number Policy Trujillo Covered Member ID Trujillo Member ID Guarantor Name 06/19/2025 1 [facility] (MEDICAID HMO) Lakshmi Frederick [id number] Lakshmi Frederick Notes Date Note Type Note Provider Name and Address Organization Details Recorded Time 06/19/2025 text/html ROS as noted in the HPI Had a pimple like lesion on outer left ear 2 or so weeks ago. She popped it, then it got much bigger. Now it is painful, red, swollen, crusty and drains yellow fluid. It is painful to touch. She cannot sleep. No fever. JUDITH Almanza [address] [place] [address], [phone], [facility] [employer] 06/19/2025 11:34:26 OBGyn Episode No OBEpisode recorded.
--- OUTSIDE RECORDS SUMMARY | 2025-07-30 11:16 | XMS_ITS | Data Portability ---
Author Organization [employer] Address [address] [place] [address] Assessment No assessment recorded. Plan of Treatment Reminders Order Date Submit Date Provider Last Modified By Organization Details Last Modified Time Details Appointments None recorded. Lab CBC w/ auto diff 2023 [facility] [address] [place], [address], 4 05:07:43 CMP, serum or plasma 2023 024 [facility] [address] [place], [address], 4 05:07:44 TSH + free T4, serum 2023 024 [facility] [place], [address], 4 05:07:43 vitamin D, 25-hydroxy, total, serum 2023 [facility] [address] [place], [address], 4 05:07:46 vitamin B12 + folate, serum or blood 2023 [facility] [address] [place], [address], 4 05:07:46 magnesium, serum or plasma 2023 024 [facility] [address] [place], [address], 4 05:07:47 lipid panel, serum 2023 024 [facility] [address] [place], [address], 4 05:07:45 hepatitis C virus RNA, quant, PCR, serum or plasma 2023 024 [facility]), [address] [place], [address], 4 05:07:45 HIV 1 + 2, meaningful use set 2023 024 [facility]), [address] [place], [address], 4 05:07:47 Referral None recorded. Procedures None recorded. Surgeries None recorded. Imaging None recorded. Medication Orders Bactrim DS 800 mg-160 mg tablet 2024 025 [facility], [address] [place] [address], [address], 5 05:01:18 Valtrex 1 gram tablet 2024 025 [facility], [address] [place] [address], [address], 5 09:30:53 ceftriaxone 1 gram solution for injection [address], [address] [place] [address], [address], 5 10:07:40 Depo-Medrol 80 mg/mL suspension for injection [address], [address] [place] [address], [address], 5 10:07:40 neomycin-po lymyxin-hyd rocort 3.5 mg-10,000 unit/mL-1 % ear drops,susp 2024 025 [facility], [address] [place] [address], [facility], [place], [address], 5 10:11:16 Bromfed DM 2 mg-30 mg-10 mg/5 mL oral syrup 2023 025 [facility], [address] [place] [address], [facility], [place], [address], 5 09:10:40 prednisone 20 mg tablet 2023 025 [facility], [address] [place] [address], [facility], [place], [address], 5 09:30:59 Imitrex 100 mg tablet 2023 025 [facility], [address] [place] [address], [facility], [place], [address], 5 11:32:01 Wellbutrin XL 150 mg 24 hr tablet, extended release 2023 024 [facility], [address] [place] [address], [place], [address], 13:41:17 Patient TargetsNo targets recorded. Patient Instructions Encounter Date Encounter Id Patient Instructions Last Modified By Organization Details Last Modified Time 08/18/2024 [id number] learning about mood disorders [email or web address] Not available 08/18/2024 09:56:18 2024 [id number] learning about mood disorders [email or web address] Not available 2024 14:42:25 upper respirator y infection (cold): care instructions [email or web address] Not available 2024 13:53:52 body mass index: care instructions [email or web address] Not available 2024 13:45:20 learning about healthy weight [email or web address] Not available 2024 13:45:20 Reason for Referral None Reported. Results Created Date Observation Date Name Description Value Unit Range Abnormal Flag Note LastModifiedBy Organization Detail LastModifiedTime 08/18/2008/19/2024 TSH+F REE T4 TSH 1.500 uIU/m L 0.450- 4.500 normal Not Available [facility] ([facility]) [address] [place], [address], 08/20/2024 05:07:43 08/18/20 24 08/19/2024 TSH+F REE T4 T4,free(dire ct) 1.10 NG/dL 0.82-1 .77 normal Not Available [facility] ([facility]) [address] [place], [address], 08/20/2024 05:07:43 08/18/20 24 08/19/2024 CBC WITH DIFFE RENTI AL/PL ATELE T WBC 6.0 x10e3 /uL 3.4-10 .8 normal Not Available [facility] ([facility]) [address] [place], [address], 08/20/2024 05:07:43 08/18/20 24 08/19/2024 CBC WITH DIFFE RENTI AL/PL ATELE T RBC 4.82 x10e6 /uL 3.77-5 .28 normal Not Available [facility] ([facility]) [address] [place], [address], 08/20/2024 05:07:43 08/18/20 24 08/19/2024 CBC WITH DIFFE RENTI AL/PL ATELE T hemoglobin 13.5 g/dL 11.1-1 5.9 normal Not Available [facility] ([facility]) [address] [place], [address], 08/20/2024 05:07:43 08/18/20 24 08/19/2024 CBC WITH DIFFE RENTI AL/PL ATELE T hematocrit 42.5 % 34.0-4 6.6 normal Not Available [facility] ([facility]) [address] [facility], [place], [address], 08/20/2024 05:07:43 08/18/20 24 08/19/2024 CBC WITH DIFFE RENTI AL/PL ATELE T MCV 88 fL 79-97 normal Not Available [facility] ([facility]) [address] [facility], [place], [address], 08/20/2024 05:07:43 08/18/20 24 08/19/2024 CBC WITH DIFFE RENTI AL/PL ATELE T MCH 28.0 pg 26.6-3 3.0 normal Not Available [facility] ([facility]) [address] [facility], [place], [address], 08/20/2024 05:07:43 08/18/20 24 08/19/2024 CBC WITH DIFFE RENTI AL/PL ATELE T MCHC 31.8 g/dL 31.5-3 5.7 normal Not Available [facility] ([facility]) [address] [place], [address], 08/20/2024 05:07:43 08/18/20 24 08/19/2024 CBC WITH DIFFE RENTI AL/PL ATELE T RDW 12.6 % 11.7-1 5.4 Not Available [facility] ([facility]) [address] [place], [address], 08/20/2024 05:07:43 08/18/20 24 08/19/2024 CBC WITH DIFFE RENTI AL/PL ATELE T platelets 242 x10e3 /uL 150-45 0 normal Not Available [facility] ([facility]) [address] [place], [address], 08/20/2024 05:07:43 08/18/20 24 08/19/2024 CBC WITH DIFFE RENTI AL/PL ATELE T neutrophils 61 % not estab. normal Not Available [facility] ([facility]) [address] [facility], [place], [address], 08/20/2024 05:07:43 08/18/20 24 08/19/2024 CBC WITH DIFFE RENTI AL/PL ATELE T lymphs 30 % not estab. normal Not Available [facility] ([facility]) [address] [facility], [place], [address], 08/20/2024 05:07:43 08/18/20 24 08/19/2024 CBC WITH DIFFE RENTI AL/PL ATELE T monocytes 7 % not estab. normal Not Available [facility] ([facility]) [address] [facility], [place], [address], 08/20/2024 05:07:43 08/18/20 24 08/19/2024 CBC WITH DIFFE RENTI AL/PL ATELE T eos 2 % not estab. normal Not Available [facility] ([facility]) [address] [facility], [place], [address], 08/20/2024 05:07:43 08/18/20 24 08/19/2024 CBC WITH DIFFE RENTI AL/PL ATELE T basos 0 % not estab. normal Not Available [facility] ([facility]) [address] [facility], [place], [address], 08/20/2024 05:07:43 08/18/20 24 08/19/2024 CBC WITH DIFFE RENTI AL/PL ATELE T immature cells JOINTER MACHINE OPERATOR Not Available [facility] ([facility]) [address] [place], [address], 08/20/2024 05:07:43 08/18/20 24 08/19/2024 CBC WITH DIFFE RENTI AL/PL ATELE T neutrophils (absolute) 3.7 x10e3 /uL 1.4-7. 0 normal Not Available [facility] ([facility]) [address] [place], [address], 08/20/2024 05:07:43 08/18/20 24 08/19/2024 CBC WITH DIFFE RENTI AL/PL ATELE T lymphs (absolute) 1.8 x10e3 /uL 0.7-3. 1 normal Not Available [facility] ([facility]) [address] [facility], [place], [address], 08/20/2024 05:07:43 08/18/20 24 08/19/2024 CBC WITH DIFFE RENTI AL/PL ATELE T monocytes(ab solute) 0.4 x10e3 /uL 0.1-0. 9 normal Not Available [facility] ([facility]) [address] [facility], [place], [address], 08/20/2024 05:07:43 08/18/20 24 08/19/2024 CBC WITH DIFFE RENTI AL/PL ATELE T eos (absolute) 0.1 x10e3 /uL 0.0-0. 4 normal Not Available [facility] ([facility]) [address] [facility], [place], [address], 08/20/2024 05:07:43 08/18/20 24 08/19/2024 CBC WITH DIFFE RENTI AL/PL ATELE T baso (absolute) 0.0 x10e3 /uL 0.0-0. 2 normal Not Available [facility] ([facility]) [address] [facility], [place], [address], 08/20/2024 05:07:43 08/18/20 24 08/19/2024 CBC WITH DIFFE RENTI AL/PL ATELE T immature granulocytes 0 % not estab. Not Available [facility] ([facility]) [address] [place], [address], 08/20/2024 05:07:43 08/18/20 24 08/19/2024 CBC WITH DIFFE RENTI AL/PL ATELE T immature grans (abs) 0.0 x10e3 /uL 0.0-0. 1 Not Available [facility] ([facility]) [address], [place], [address], 08/20/2024 05:07:43 08/18/20 24 08/19/2024 CBC WITH DIFFE RENTI AL/PL ATELE T NRBC JOINTER MACHINE OPERATOR Not Available [facility] ([facility]) [address], [place], [address], 08/20/2024 05:07:43 08/18/20 24 08/19/2024 CBC WITH DIFFE RENTI AL/PL ATELE T hematology comments: JOINTER MACHINE OPERATOR Not Available [facility] ([facility]) [address], [place], [address], 08/20/2024 05:07:43 08/18/20 24 08/19/2024 COMP. METAB OLIC PANEL (14) glucose 109 mg/dL 70-99 above high normal Not Available [facility] ([facility]) [address], [place], [address], 08/20/2024 05:07:44 08/18/20 24 08/19/2024 COMP. METAB OLIC PANEL (14) BUN 7 mg/dL 6-20 normal Not Available [facility] ([facility]) [address] [place], [address], 08/20/2024 05:07:44 08/18/20 24 08/19/2024 COMP. METAB OLIC PANEL (14) creatinine 0.71 mg/dL 0.57-1 .00 normal Not Available [facility] ([facility]) [address] [place], [address], 08/20/2024 05:07:44 08/18/20 24 08/19/2024 COMP. METAB OLIC PANEL (14) eGFR 114 mL/mi n/1.7 3 >59 normal Not Available [facility] ([facility]) [address] [place], [address], 08/20/2024 05:07:44 08/18/20 24 08/19/2024 COMP. METAB OLIC PANEL (14) BUN/creatini ne ratio 10 9-23 normal Not Available [facility] ([facility]) [address] [facility] [place], [address], 08/20/2024 05:07:44 08/18/20 24 08/19/2024 COMP. METAB OLIC PANEL (14) sodium 136 mmol/ L 134-14 4 normal Not Available [facility] ([facility]) [address] [facility] [place], [address], 08/20/2024 05:07:44 08/18/20 24 08/19/2024 COMP. METAB OLIC PANEL (14) potassium 4.4 mmol/ L 3.5-5. 2 normal Not Available [facility] ([facility]) [address] [facility] [place], [address], 08/20/2024 05:07:44 08/18/20 24 08/19/2024 COMP. METAB OLIC PANEL (14) chloride 102 mmol/ L 96-106 normal Not Available [facility] ([facility]) [address] [facility] [place], [address], 08/20/2024 05:07:44 08/18/20 24 08/19/2024 COMP. METAB OLIC PANEL (14) carbon dioxide, total 21 mmol/ L 20-29 normal Not Available [facility] ([facility]) [address] [facility] [place], [address], 08/20/2024 05:07:44 08/18/20 24 08/19/2024 COMP. METAB OLIC PANEL (14) calcium 8.8 mg/dL 8.7-10 .2 normal Not Available [facility] ([facility]) [address] [facility] [place], [address], 08/20/2024 05:07:44 08/18/20 24 08/19/2024 COMP. METAB OLIC PANEL (14) protein, total 6.5 g/dL 6.0-8. 5 normal Not Available [facility] ([facility]) [address] [facility] [place], [address], 08/20/2024 05:07:44 08/18/20 24 08/19/2024 COMP. METAB OLIC PANEL (14) albumin 4.1 g/dL 3.9-4. 9 normal Not Available [facility] ([facility]) [address] [facility] [place], [address], 08/20/2024 05:07:44 08/18/20 24 08/19/2024 COMP. METAB OLIC PANEL (14) globulin, total 2.4 g/dL 1.5-4. 5 Not Available [facility] ([facility]) [address] [facility] [place], [address], 08/20/2024 05:07:44 08/18/20 24 08/19/2024 COMP. METAB OLIC PANEL (14) bilirubin, total 0.2 mg/dL 0.0-1. 2 normal Not Available [facility] ([facility]) [address] [facility] [place], [address], 08/20/2024 05:07:44 08/18/20 24 08/19/2024 COMP. METAB OLIC PANEL (14) alkaline phosphatase 88 IU/L 44-121 normal Not Available [facility] ([facility]) [address] [facility] [place], [address], 08/20/2024 05:07:44 08/18/20 24 08/19/2024 COMP. METAB OLIC PANEL (14) AST (SGOT) 16 IU/L 0-40 normal Not Available [facility] ([facility]) [address] [facility] [place], [address], 08/20/2024 05:07:44 08/18/20 24 08/19/2024 COMP. METAB OLIC PANEL (14) ALT (SGPT) 16 IU/L 0-32 normal Not Available [facility] ([facility]) [address] [facility] [place], [address], 08/20/2024 05:07:44 08/18/20 24 08/19/2024 LIPID PANEL cholesterol, total 211 mg/dL 100-19 9 above high normal Not Available [facility] ([facility]) [address] [facility] [place], [address], 08/20/2024 05:07:45 08/18/20 24 08/19/2024 LIPID PANEL triglyceride s 294 mg/dL 0-149 above high normal Not Available [facility] ([facility]) [address] [facility] [place], [address], 08/20/2024 05:07:45 08/18/20 24 08/19/2024 LIPID PANEL HDL cholesterol 25 mg/dL >39 below low normal Not Available [facility] ([facility]) [address] [place], [address], 08/20/2024 05:07:45 08/18/20 24 08/19/2024 LIPID PANEL VLDL cholesterol laure 53 mg/dL 5-40 above high normal Not Available [facility] ([facility]) [address] [facility], [place], [address], 08/20/2024 05:07:45 08/18/20 24 08/19/2024 LIPID PANEL LDL chol calc ([facility]) 133 mg/dL 0-99 above high normal Not Available [facility] ([facility]) [address] [facility] [place], [address], 08/20/2024 05:07:45 08/18/20 24 08/19/2024 LIPID PANEL LDL calc comment: JOINTER MACHINE OPERATOR Not Available [facility] ([facility]) [address] [facility], [place], [address], 08/20/2024 05:07:45 08/18/20 24 08/18/2024 HCV RNA BY PCR, QN RFX JULIA test information: COMMEN T The quant itati ve range of this assay is 15 IU/mL to 100 gifty on IU/mL . Not Available [facility] ([facility]) [address] [facility], [place], [address], 08/20/2024 05:07:45 08/18/20 24 08/19/2024 HCV RNA BY PCR, QN RFX JULIA hepatitis C quantitation HCV NOT DETECT ED IU/mL Not Available [facility] ([facility]) [address] [facility], [place], [address], 08/20/2024 05:07:45 08/18/2008/19/2024 HCV RNA BY PCR, QN RFX JULIA HCV log10 COMMEN T log10 _IU/m L Unabl e to calcu late resul t since non-n umeri c resul t obtai krystle for compo nent test. Not Available [facility] ([facility]) [address] [facility], [place], [address], 08/20/2024 05:07:45 08/18/20 24 08/19/2024 HCV RNA BY PCR, QN RFX JULIA HCV genotype COMMEN T Not indic ated Not Available [facility] ([facility]) [address] [facility], [place], [address], 08/20/2024 05:07:45 08/18/20 24 08/19/2024 VITAM IN B12 AND FOLAT E vitamin B12 462 pg/mL 232-12 45 normal Not Available [facility] ([facility]) [address] [facility], [place], [address], 08/20/2024 05:07:46 08/18/20 24 08/19/2024 VITAM IN B12 AND FOLAT E folate (folic acid), serum 4.2 NG/mL >3.0 normal A serum folat e reynold ntrat ion of less than 3.1 ng/mL is consi dered to repre sent clini laure defic iency . Not Available [facility] ([facility]) [address] [facility], [place], [address], 08/20/2024 05:07:46 08/18/20 24 08/19/2024 VITAM IN D, 25-HY DROXY vitamin D, 25-hydroxy 29.5 NG/mL 30.0-1 00.0 below low normal Vitam in D defic iency has been defin ed by the Insti tute of Medic ine and an Endoc rine Socie ty pract ice guide line as a level of serum 25-OH vitam in D less than 20 ng/mL (1,2) . The Endoc rine Socie ty went on to furth er defin e vitam in D insuf ficie ncy as a level betwe en 21 and 29 ng/mL (2). 1. IOM (Inst itute of Medic ine). 2010. Riaz ry refer ence lion es for calci um and D. Jair delgado [place]: [facility] . 2. Lucinda garvin [place], Portia holguin [place], Susanna off-F errar i JAIMES, et al. Evalu ation , treat ment, and preve ntion of vitam in D defic iency : an Endoc rine Socie ty clini laure pract ice guide line. JCEM. 2010; 96(7) :1911 -30. Not Available [facility] ([facility]) [address] [facility], [place], [address], 08/20/2024 05:07:46 08/18/20 24 08/20/2024 HIV AB/P2 4 AG WITH REFLE X HIV Ab/P24 Ag screen NON REACTI VE non reacti ve HIV-1 /HIV- 2 antib odies and HIV-1 p24 antig en were NOT detec magdaleno. There is no labor atory evide nce of HIV infec tion. HIV Negat anthony Not Available [facility] ([facility]) [address] [facility], [place], [address], 08/20/2024 05:07:47 08/18/20 08/19/2024 MAGNE SIUM magnesium 2.0 mg/dL 1.6-2. 3 normal Not Available [facility] ([facility]) [address] [facility], [place], [address], 08/20/2024 05:07:47 Result Notes None recorded. Problems Name Problem SNOMED Code Status Onset Date Resolution Date Notes Provider Name and Address Organization Details Recorded Time Migraine 04431226 Active 2023 JUDITH Almanza [address] [place] [address], [phone], [employer] 14:58:30 Viral hepatitis C 60596714 Active 2023 completed treatment 02/2024 (HCV PCR negative 09/07) JUDITH Almanza [address] [place] [address], [phone], [employer] 4 08:13:03 Tremor 23760094 Active 2023 JUDITH Almanza [address] [place] [address], [phone], [employer] 4 09:25:21 Depressive disorder 81824425 Active 2023 JUDITH Almanza [address] [place] [address], [address], [employer] 4 14:58:15 Vitamin D deficiency 64667587 Active 2023 JDUITH Almanza [address] [place] [address], [address], [employer] 4 08:13:09 Hyperlipid emia 98237229 Active 2023 JUDITH Almanza [address] [place] [address], [phone], [employer] 4 08:13:07 Generalize d anxiety disorder 20218646 Active 2023 JUDITH Almanza [address] [place] [address], [phone], [employer] 4 12:05:58 Acute upper respirator y infection 05733963 Active 2023 JUDITH Almanza [address] [place], [address], [employer] 4 13:52:51 Cellulitis of head 747420472 Active 2024 JUDITH Almanza [address] [place], [address], [employer] 5 09:20:01 Problem Notes None recorded. Procedures Surgical History Date Name Laterality Status Provider Name and Address Organization Details Recorded Time Caesarean Section completed Clementine [employer] 08/18/2024 09:06:05 Hysterectomy completed [employer] 08/18/2024 09:06:05 Imaging Results None recorded. Procedure Notes None recorded. Medical Equipment None Reported. Allergies Allergen ID Allergen Name Allergen Category Reaction Reaction Severity Criticality Documentation Date Start Date Code Code System Note Provider Name and Address Organization Details Recorded Time 88649 latex environme nt,medica tion itching rash Not available Not available Not available 08/18/2024 64576 91 RxNorm [employer] null, [employer] 4 09:06:03 Medications Name Sig Start [...] Updated DateTime 5 160.02 cm 35.6 kg/m2 25325.0 7 g 97 % 97 % 88 /min 98.4 [degF] 124/84 mm[Hg] [employer] 5 08:59:11 Date Recorded Body weight Body mass index (BMI) Body height Oxygen saturation Oxygen saturation in Arterial blood by Pulse oximetry Heart rate Systolic And Diastolic Provider Name and Address Organization Details Last Updated DateTime 4 91279.4 5 g 34 kg/m2 160.02 cm 96 % 96 % 87 /min 131/89 mm[Hg] [employer] 4 09:06:33 Date Recorded Body height Body mass index (BMI) Body weight Heart rate Oxygen saturation Oxygen saturation in Arterial blood by Pulse oximetry Systolic And Diastolic Provider Name and Address Organization Details Last Updated DateTime 4 160.02 cm 33.8 kg/m2 75995.7 1 g 86 /min 96 % 96 % 117/80 mm[Hg] [employer] 4 13:33:38 Social History Question Answer Notes LastModified by Organizat ion Details LastModified Time Tobacco Smoking Status Current Every Day Smoker [email or web address]. 08/18/2024 09:06:04 Do You Have An Advance [...] Information not available 08/18/2024 What Type Of Observatory Director Do You Use? None Information not available [...] Or The Highest Degree You Have Received? BP00321-6 Information not available 08/18/2024 Who Is Your Employer? [employer] Information not available 08/18/2024 How Many Days [...] Do You Have A Medical Power Of It Systems Analyst? No Information not available 08/18/2024 What Was [...] Functional Status Question Answer Note LastModified by Organizat ion Details LastModified Time Do you use [...] Mental Status Question Answer Note LastModified by Organizat ion Details LastModified Time Do you feel stressed (tense, restless, nervous, or anxious, or unable to sleep at night)? [id number] Information not available 08/18/2024 Do you have [...] Artery Disease N Other N Gout N Blood Diseases N Kidney Stones N Hyperthyroidism N Blood Transfusion N Breast Cancer N Emergency room visit since last appointm ent. N Lung Disease N COPD N Depression Y Hypothyroidism N Dermatologic Disorders N Defects or Inherited Disease N Developmental or Behavioral Disorders N Breast Problem N Difficulty Swallowing N Anesthesia Complications N History of STI N Anxiety Disorder Y Meniere's disease N Autoimmune disease N Muscle, Joint, or Bone Problems N Vision or Eye Problems N Arthritis N Infertility N Polyps N Mental Disorder N Congenital Anomalies N Acid Reflux (GERD) N Cancer N Stroke N Neurologic/Epilepsy N Endometriosis N Bladder or Kidney Problems N High Cholesterol N Liver Disease N Organ Transplant N Psychiatric/Mental Health Condition N Dialysis N Headaches Y Fibromyalgia N Schizophrenia N Kidney Disease N Allergies/Hayfever N Heart Problems N Ear or Hearing Problems N Hospitalizations N Learning Disorder N Artificial Joints N Thyroid Problems N GI Problems N Acne N ADD/ADHD N Eating Disorder N Anemia N Constipation N Mental Illness N Diabetes N Ovarian Cancer N Bedwetting N Hepatitis/Liver Disease N Tuberculosis N Eczema N Abuse/Domestic Violence N Diverticulitis N Asthma N Trauma/Violence N Substance Abuse N Reflux/GERD N Depression/ depression N Hepatitis N Heart Disease N Pulmonary Embolism N Tourette Syndrome N Chronic Ear Infections N Pre-Eclampsia N Hypertension N Chicken Pox N Autism Spectrum Disorder (ASD) N Osteoporosis N Thrombophilias N Gynecological History Statement/Question Response [...] ICD10 Code Diagnosis IMO Codes Diagnosis Note [id number] JUDITH Almanza [facility] [address] [place] [address] 08/18/2024 09:02:19 08/18/2024 10:29:04 Migraine 87458384 G43.909 Viral hepatitis C 671032 07 B19.20 Patient completed treatment for Hepatitis C in February 2024 Tremor 86901368 R25.1 Depressive disorder 6778 9007 F32.A Wean off Wellbutrin XL and continue Effexor [id number] JUDITH Almanza [facility] [address] [place] [address] 2024 13:21:51 2024 13:52:35 Body mass index 30+ - obesity 149819801 Z68.33 Acute uppe r respiratory infection 04555111 J06.9 Depressive disorder 8358 1633 F32.A Continue Effexor [id number] JUDITH Almanza [facility] [address] [place] [address] 06/19/2025 08:51:50 06/19/2025 09:35:33 Cellulitis of head 341963149 H60.12 [id number] RTC if not improving Health Concerns Section Related Observation LastModified by Organization Detai ls LastModified Time None Recorded Concern Status LastModified by Organization Details LastModified Time None Recorded Advance Directives Directive N: Payers Insurance Date Sequence Insurance Name Policy Number Policy Trujillo Covered Member ID Trujillo Member ID Guarantor Name 10/22/2024 1 UNSPECIFIED REMIT PAYOR Lakshmi Frederick 06/19/2025 1 [facility] (MEDICAID HMO) Lakshmi Frederick [id number] Lakshmi Frederick Notes Date Note Type Note Provider Name and Address Organization Details Recorded Time 08/18/2024 text/html MigrainesShaking in legsMigraine 2-3 X a week. Last one 3 days ago. Was not sleeping well. Takes Effexor and Wellbutrin. Changed dosing and is sleeping better but is now shaking. In the past, we discussed that she likely should not be taking both but she was hesistant to stop them because she was doing well. JUDITH Almanza [address] [place] [address], [place], [id number], [facility] [email or web address] 08/18/2024 11:44:28 2024 text/html Patient presents for followup. HIstory of depression. We have weaned her off Wellbutrin and increased her Effexor. She states this is going well.She does have cold symptoms. has sore trhoat, congestion x 3 days. JUDITH Almanza [address] [place], [address], [employer] 2024 14:42:51 06/19/2025 text/html ROS as noted in the HPI Had a pimple like lesion on outer left ear 2 or so weeks ago. She popped it, then it got much bigger. Now it is painful, red, swollen, crusty and drains yellow fluid. It is painful to touch. She cannot sleep. No fever. JUDITH Almanza [address] [place], [address], [employer] 06/19/2025 11:34:26 OBGyn Episode No OBEpisode recorded.
== END 2025-07-29 23:59 ==
LOC: LAB.DROPOF 07-30 11:14
PROVIDERS: PCP Nurse Practitioner; Visit Provider Nurse Practitioner
DX: H66.92 Otitis media, unspecified, left ear (principal)
CPT/HCPCS: 87070